=== PATIENT | female | born 1990 | race Caucasian/White ===

== ENCOUNTER 2023-04-25 21:44 | Emergency (ER) | payer OTHER, SELFPAY ==
[2023-04-25 21:47] VITALS: BP 102/65; PULSE 87; RESP 22; TEMP 37.1; O2SAT 100
--- NOTE | 2023-04-25 22:12 | ED.DENTAL ---
HPI - Dental/Oral General Chief complaint: Dental/Oral/Mouth Injury/Pain Stated complaint: Mouth Pain Time Seen by Provider: 04/25/23 21:50 History of Present Illness HPI Narrative: This 32-year-old female comes in with severe left lower dental pain. She did see a provider who prescribed amoxicillin 250 mg which she started yesterday. She has been taking Tylenol and ibuprofen. She does have an appointment with a dentist in about a week. She has poor dentition and a fractured tooth in this area that is causing lots of pain. Related Data Allergies Allergy/AdvReac Type Severity Reaction Status Date / Time No Known Drug Allergies Allergy Verified 04/25/23 21:51 Review of Systems Status of ROS: Reports: 10 or more systems reviewed and unremarkable except as noted in History and below Narrative: Constitutional: No fevers, no weight gain or loss. Eyes: No discharge. No vision changes. HENT: No congestion, no sore throat, no ear pain. Dental pain as described above. Cardiovascular: No chest pain, no palpitations. Respiratory: No shortness of breath, no wheezes, no cough. Gastrointestinal: No abdominal pain, no vomiting, no diarrhea. Genitourinary: No dysuria, no hematuria. Musculoskeletal: Normal range of motion. Skin: No rashes, no pruritis. Neurological: No dizziness, weakness, sensory change, speech change. Endo/Heme/Allergies: No bruising or bleeding. No polydipsia. Pysch: no suicidality, no anxiety, no insomnia. All other systems reviewed and are negative. Exam Narrative: Exam Narrative: Constitutional: Well-developed, well-nourished, no acute distress. HEENT: Normocephalic, atraumatic. Oropharynx shows poor dentition with several missing teeth. There is a fractured tooth with a large cavity in the left posterior row. Neck: Normal range of motion. Nontender. Supple. Heart: Regular. No murmurs. Normal rate. Intact distal pulses. Lungs: Clear to auscultation. No chest discomfort. No wheezes, rhonchi, or rales. Abdomen: Normal bowel sounds. Nontender. No rebound tenderness. Genitalia: Deferred. Back: No midline tenderness. Normal range of motion. Extremities: Normal range of motion. No injury. Skin: Intact. No rash. Warm. No erythema or pallor. Neurologic: No altered sensation. No weakness. Alert and oriented. Psychiatric: No suicidality. No anxiety or depression. No insomnia. Nursing notes and vitals signs are reviewed. Const: Vital Signs, click to edit/add: Vital Signs - 24 hr 04/25/23 21:47 Temperature 98.8 F Pulse Rate [Right Pulse Oximeter] 87 Respiratory Rate 22 Blood Pressure [Ri ght Upper Arm] 102/65 Pulse Oximetry 100 Oxygen Delivery Me thod Room Air Course Vital Signs Vital signs: Initial Vital Signs Temperature 98.8 F 04/25/23 21:47 Temperature Source Temporal Artery Scan 04/25/23 21:47 Pulse Rate 87 04/25/23 21:47 Pulse Rhythm Regular 04/25/23 21:47 Respiratory Rate 22 04/25/23 21:47 Blood Pressure 102/65 04/25/23 21:47 Blood Pressure Mean 77 04/25/23 21:47 Blood Pressure Position Sitting 04/25/23 21:47 Pulse Oximetry 100 04/25/23 21:47 Oxygen Delivery Method Room Air 04/25/23 21:47 Vital Signs Temperature 98.8 F 04/25/23 21:47 Pulse Rate 87 04/25/23 21:47 Respiratory Rate 22 04/25/23 21:47 Blood Pressure 102/65 04/25/23 21:47 Pulse Oximetry 100 04/25/23 21:47 Oxygen Delivery Method Room Air 04/25/23 21:47 Temperature 98.8 F 04/25/23 21:47 Pulse Rate 87 04/25/23 21:47 Respiratory Rate 22 04/25/23 21:47 Blood Pressure 102/65 04/25/23 21:47 Pulse Oximetry 100 04/25/23 21:47 Oxygen Delivery Method Room Air 04/25/23 21:47 MDM - Dental/Oral MDM Narrative Medical decision making narrative: This patient comes in with dental pain and does have poor dentition with a fractured tooth. There is no sign of abscess on exam. She did start a somewhat low dose of amoxicillin yesterday. The patient was agreeable to have a dental nerve block. Using bupivacaine 0.25% I injected about 2 mL into the area around the left inferior alveolar nerve. This did block that nerve and give significant relief to her pain. The patient did received prescription for amoxicillin 500 mg and Toradol. She will need to follow up with the dentist for more definitive treatment. Discharge Plan Discharge Clinical Impression: Pain due to dental caries Patient Disposition: Home, Self-Care Condition: Stable Additional Instructions: Take medication as needed and directed. Follow up with dentist as soon as possible. Stand Alone Forms: [employer] Info Instructions
[2023-04-25] MEDS: BUPIVACAINE 0.25% 30 ML INJECTION (22:28)
== END 2023-04-25 22:34 | disposition home or self-care (01) ==
LOC: ED 22:23
PROVIDERS: Emergency Provider Emergency Medicine Emergency Medical Services
DX: K02.9 Dental caries, unspecified (principal)
CPT/HCPCS: 64400; 99283; 99284; J0665